=== PATIENT | male | born 1945 ===

== ENCOUNTER 2016-10-26 13:22 | Observation (INO) | payer MEDICARE, MEDICAID ==
[2016-10-26 13:42] VITALS: BMI 26.6
[2016-10-26 14:12] LABS: ADD MANUAL DIFF? NO
--- NOTE | 2016-10-26 14:13 | ED PDOC ---
Arrival/HPI - General Chief Complaint: Psychiatric Evaluation Time Seen by Provider: 10/26/16 13:29 Historian: Patient - History of Present Illness Narrative History of Present Illness (Text): 10/26/16 14:07 A 71 year old male, whose past medical history includes schizoaffective disorder and hydrocephalus s/p CARPET JACK shunt, was sent into the emergency department by [facility] for aggressive behavior prior to arrival. Patient is Georgian speaking with limited Mongolian, assisted by scribe when needed. Patient is cooperative on exam and denies any discomfort or physical complaints. Patient denies any headache, fever, chills, nausea, vomiting, diarrhea, abdominal pain, chest pain, shortness of breath, suicidal or homicidal ideations , visual or auditory hallucinations or any other complaints. PMD: Dr. Marie Time/Duration: Prior to Arrival Quality: Other Context: Home (correction) Past Medical History - Provider Review Nursing Documentation Reviewed: Yes - Infectious Disease Hx of Infectious Diseases: None - Neurological Hx Dementia: Yes Hx Syncope: Yes Other/Comment: Hydrocephalus s/p CARPET JACK shunt - Psychiatric Hx Schizophrenia: Yes (Schizoaffective disorder) Hx Substance Use: No - Surgical History Other/Comment: CARPET JACK shunt - Anesthesia Hx Anesthesia: Yes Hx Anesthesia Reactions: No Hx Malignant Hyperthermia: No Family/Social History - Physician Review Nursing Documentation Reviewed: Yes Family/Social History: No Known Family HX Smoking Status: Unknown If Ever Smoked Hx Alcohol Use: No Hx Substance Use: No Allergies/Home Meds Allergies/Adverse Reactions: Allergies No Known Allergies Allergy (Verified 10/26/16 13:32) Home Medications: Home Meds Medication Instructions Recorded Confirmed Divalproex [Depakote ER] 1 tab PO DAILY 10/26/16 10/26/16 Docusate Sodium [Colace] 200 mg PO DAILY 10/26/16 10/26/16 Quetiapine Fumarate [Seroquel] 1 tab PO HS 10/26/16 10/26/16 Zaleplon [Sonata] 1 cap PO HS 10/26/16 10/26/16 Ziprasidone [Geodon Cap] 1 tab PO Q8H PRN 10/26/16 10/26/16 Review of Systems - Physician Review All systems were reviewed & negative as marked: Yes - Review of Systems Constitutional: Normal. absent: Fevers, Night Sweats Respiratory: absent: SOB Cardiovascular: absent: Chest Pain Gastrointestinal: absent: Abdominal Pain, Diarrhea, Nausea, Vomiting Psychiatric: absent: Suicidal Ideation (/Homicidal ideation/Hallucinations) Physical Exam - Physical Exam Narrative Physical Exam (Text): Constitutional: No acute distress. Head: Normocephalic. Atraumatic. Eyes: PERRL. ENT: Moist mucous membranes. Neck: Supple. Cardiovascular: Regular rate. Chest: No tenderness. Respiratory: Clear to auscultation bilaterally. GI: Soft. Nontender. Nondistended. Back: No CVA tenderness. Musculoskeletal: No tenderness or swelling of extremities. Skin: No rash. Neurologic: Alert, no focal deficit. Normal finger to nose exam. Normal heel to knee exam. Vital Signs Reviewed: Yes Vital Signs Temp Pulse Resp BP Pulse Ox 10/26/16 18:17 98.3 F 56 L 18 141/69 99 10/26/16 15:30 60 18 98 10/26/16 13:23 98.7 F 62 18 121/64 96 Temperature: Afebrile Blood Pressure: Normal Pulse: Regular Respiratory Rate: Normal Appearance: Positive for: Well-Appearing, Non-Toxic, Comfortable Pain Distress: None Mental Status: Positive for: Alert and Oriented X 3 Medical Decision Making ED Course and Treatment: 10/26/16 14:07 Impression: A 71 year old male sent in for aggressive behavior. Patient is cooperative and denies any complaints. Plan: -- Chest xray -- EKG -- Labs -- Urinalysis -- Reassess and disposition Progress Notes: EKG: Ordered, reviewed, and independently interpreted the EKG. Rate : 60 BPM Rhythm : NSR Interpretation : No ST/T wave changes Dictator : Dhaval Loyola MD Report Date : 10/26/2016 15:47:40 Procedure: Chest X-Ray IMPRESSION: No active disease. - Lab Interpretations Lab Results: 10/26/16 13:54 10/26/16 13:54 Lab Results 10/26/16 13:54: Alcohol, Quantitative < 10 10/26/16 13:54: Salicylates < 1 L, Acetaminophen < 10.0 L 10/26/16 13:54: Sodium 141, Potassium 4.1, Chloride 101, Carbon Dioxide 30, Anion Gap 14, BUN 15, Creatinine 1.0, Est GFR ( Amer) > 60, Est GFR (Non- Af Amer) > 60, Random Glucose 95, Calcium 9.5, Total Bilirubin 0.4, AST 19, ALT 32, Alkaline Phosphatase 83, Total Protein 8.0, Albumin 4.3, Globulin 3.7, Albumin/Globulin Ratio 1.2 10/26/16 13:54: WBC 6.3, RBC 4.22, Hgb 13.3 L, Hct 39.6 L, MCV 93.8, MCH 31.5, MCHC 33.6, RDW 15.0 H, Plt Count 232, MPV 10.5, Gran % 70.6 H, Lymph % (Auto) 18.8 L, [place] % (Auto) 9.1 H, Eos % (Auto) 1.3 L, Baso % (Auto) 0.2, Gran # 4.43 , Lymph # 1.2, [place] # 0.6, Eos # 0.1, Baso # 0.01 I have reviewed the lab results: Yes ED OBSERVATION Discharge: Yes Date of observation admission: 10/26/16 Time of observation admission: 14:06 - Observation admission statement Patient is being placed in observation because:: aggressive behavior - Goals of Observation Goals of observation are:: medical clearance - Progress Note Progress Note: 1406 Pending labs. 1606 Labs unremarkable. Pending urine. 1802 Pending urine. 1999 UA negative. 2200 Evaluated by PES. Recommend discharge back to [facility]. - Scribe Statement The provider has reviewed the documentation as recorded by the Darrellibtrevor Hernandez Provider Scribe Attestation: All medical record entries made by the Scribe were at my direction and personally dictated by me. I have reviewed the chart and agree that the record accurately reflects my personal performance of the history, physical exam, medical decision making, and the department course for this patient. I have also personally directed, reviewed, and agree with the discharge instructions and disposition. Disposition/Present on Arrival - Present on Arrival Any Indicators Present on Arrival: No History of DVT/PE: No History of Uncontrolled Diabetes: No Urinary Catheter: No History of Decub. Ulcer: No History Surgical Site Infection Following: None - Disposition Have Diagnosis and Disposition been Completed?: Yes Diagnosis: Schizoaffective disorder Disposition: HOME/ ROUTINE Disposition Time: 14:06 Patient Plan: Discharge Condition: STABLE
[2016-10-26 14:16] LABS: BASO # 0.01 K/mm3 (0.0-2.0); BASO % 0.2 % (0.0-3.0); EOS # 0.1 (0.0-0.7); EOS % 1.3 % (1.5-5.0); GRAN # 4.43 (1.4-6.5); GRAN % 70.6 % (50.0-68.0); HEMATOCRIT 39.6 % (42.0-52.0); LYMPH # 1.2 (1.2-3.4); LYMPH % 18.8 % (22.0-35.0); MEAN CELL VOLUME 93.8 fL (80.0-105.0); MEAN CORPUSCULAR HEMOGLOBIN 31.5 pg (25.0-35.0); MEAN CORPUSCULAR HGB CONC 33.6 g/dl (31.0-37.0); MEAN PLATELET VOLUME 10.5 fl (7.0-11.0); MONO # 0.6 (0.1-0.6); MONO % 9.1 % (1.0-6.0); PLATELET COUNT 232 10^3/uL (120.0-450.0); WHITE BLOOD COUNT 6.3 10^3/ul (4.5-11.0)
[2016-10-26 14:37] LABS: ALB/GLOB RATIO 1.2 (1.1-1.8); ALKALINE PHOSPHATASE 83 U/L (38-133); ALT/SGPT 32 U/L (7-56); AST/SGOT 19 U/L (15-59); BILIRUBIN,TOTAL 0.4 mg/dL (0.2-1.3); BLOOD UREA NITROGEN 15 mg/dL (7-21); CALCIUM 9.5 mg/dL (8.4-10.5); CARBON DIOXIDE 30 mmol/L (21-33); CHLORIDE 101 mmol/L (98-107); GFR AFRICAN-AMERICAN > 60; GLUCOSE,RANDOM 95 mg/dL (70-110); POTASSIUM 4.1 mmol/L (3.6-5.0); SODIUM 141 mmol/L (132-148)
--- NOTE | 2016-10-26 15:49 | RAD ---
HISTORY: aggressive behavior COMPARISON: No prior. FINDINGS: LUNGS: No active pulmonary disease. PLEURA: No significant pleural effusion identified, no pneumothorax apparent. CARDIOVASCULAR: Normal. OSSEOUS STRUCTURES: No significant abnormalities. VISUALIZED UPPER ABDOMEN: Normal. OTHER FINDINGS: None. IMPRESSION: No active disease.
[2016-10-26 18:27] LABS: URINE BILIRUBIN NEGATIVE (NEGATIVE); URINE BLOOD NEGATIVE (NEGATIVE); URINE GLUCOSE (UA) NEGATIVE (NEGATIVE); URINE KETONE NEGATIVE (NEGATIVE); URINE LEUKOCYTE ESTERASE NEGATIVE Leu/uL (NEGATIVE); URINE PROTEIN NEGATIVE mg/dL (<30 mg/dL); URINE UROBILINOGEN 0.2 E.U./dL (<1 E.U./dL)
[2016-10-26 18:31] LABS: URINE APPEARANCE CLEAR (CLEAR); URINE COLOR YELLOW (YELLOW)
--- NOTE | 2016-10-26 20:58 | CARD ---
APPROVED REPORT EKG Measurement Heart [id number] <Conclusion> Normal sinus rhythm Normal ECG
[2016-10-26 23:03] VITALS: BP 148/76; PULSE 68; RESP 16; TEMP 98; O2SAT 100
== END 2016-10-26 21:57 ==
LOC: ED 13:22 → EROBSV 14:06 → MERGE 14:06
PROVIDERS: ADMIT Student in an Organized Health Care Education/Training Program; ATTEND Student in an Organized Health Care Education/Training Program
DX: F25.9 Schizoaffective disorder, unspecified (principal)
CPT/HCPCS: 71010; 80053; 81003; 85025; 90791; 93005; 99284; G0378; G0480